=== PATIENT | male | born 1975 | race Hispanic/Latino ===

== ENCOUNTER 2017-05-23 16:14 | Emergency (ER) | payer MEDICARE ==
[2017-05-23] MEDS ORDERED: TYLENOL PO ONE (16:36)
[2017-05-23] MEDS ORDERED: TYLENOL ONE (16:37)
[2017-05-23 16:50] LABS: Basophils % (Auto) 0.8 % (0.0-1.8); Eosinophils % (Auto) 3.6 % (0.0-4.3); Hemoglobin 11.7 gm/dl (11.8-15.2); Mean Corpuscular HGB Conc 36 % (32-34); Mean Corpuscular Hemoglobin 33 pg (28-32); Mean Corpuscular Volume 93 fl (84-94); Platelet Count 379 K/mm3 (140-440); Red Blood Count 3.53 M/mm3 (3.65-5.03); Red Cell Distribution Width 12.1 % (13.2-15.2); White Blood Count 12.7 K/mm3 (4.5-11.0)
[2017-05-23 17:00] LABS: INR 0.96 (0.87-1.13)
[2017-05-23 17:03] LABS: Alanine Aminotransferase 21 units/L (7-56); Albumin/Globulin Ratio 1.3 %; Alkaline Phosphatase 92 units/L (35-129); Anion Gap 14 mmol/L; BUN/Creatinine Ratio 14; Bilirubin,Total < 0.20 mg/dL (0.1-1.2); Blood Urea Nitrogen 18 mg/dL (9-20); Calcium 10.4 mg/dL (8.4-10.2); Carbon Dioxide 37 mmol/L (22-30); Glucose 145 mg/dL (75-100); Sodium 139 mmol/L (137-145); Total Protein 7.1 g/dL (6.3-8.2)
[2017-05-23] MEDS ORDERED: DILAUDID IV ONE ×2 (17:19→19:56)
[2017-05-23] MEDS ORDERED: NACL 0.9% 1000 ML 1,000 ML IV ONE (17:19)
[2017-05-23] MEDS ORDERED: VANCOMYCIN/NS 1 GM/250 ML 1 GM/250 ML BAG IV ONE (17:19)
[2017-05-23] MEDS ORDERED: ZOFRAN IV ONE (17:19)
[2017-05-23 17:22] LABS: Potassium 2.8 mmol/L (3.6-5.0)
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
[2017-05-23] MEDS ORDERED: NACL ONE (17:35)
[2017-05-23] MEDS ORDERED: KCL 10MEQ/100ML 10 MEQ/100 ML BAG IV SCH (18:00)
--- NOTE | 2017-05-23 18:09 | XRay Report ---
FINAL REPORT EXAM: XR CHEST 1V AP HISTORY: possible Sepsis TECHNIQUE: upright single view chest PRIORS: None. FINDINGS: Cardiac and mediastinal contours are unremarkable. No focal pulmonary infiltrate is identified. No pleural fluid collection seen. Pulmonary vasculature is unremarkable. IMPRESSION: Negative single-view chest
[2017-05-23] MEDS ORDERED: SUBLIMAZE IV ONE ×2 (18:13→22:17)
[2017-05-23] MEDS ORDERED: SUBLIMAZE ONE ×2 (18:16→22:10)
[2017-05-23] MEDS ORDERED: VANCOMYCIN 1,250 MG in NACL 0.9% 250ML 250 ML IV SCH (18:30)
[2017-05-23] MEDS ORDERED: KCL 20 MEQ in NACL 0.9% 250ML 250 ML IV SCH (18:45)
[2017-05-23 19:12] LABS: Bilirubin,Urine NEG (Negative); Blood,Urine NEG (Negative); Ketones,Urine NEG (Negative); Leukocyte Esterase,Urine NEG (Negative); Mucus,Urine FEW /HPF; Nitrite,Urine NEG (Negative); Urobilinogen,Urine < 2.0 mg/dL (<2.0)
--- NOTE | 2017-05-23 19:41 | Cat Scan Report ---
FINAL REPORT EXAM: CT UPPER EXTREM RT W CON HISTORY: RT SHOULDER WOUND, DISCHARGE, S/P SURGERY TECHNIQUE: CT of the right upper extremity with intravenous contrast PRIORS: None. FINDINGS: Evidence prior surgery with surgical screws within the glenoid. No evidence for effusion within the shoulder joint. No acute bony changes are otherwise identified The anterior soft tissues of the right shoulder there is a small soft tissue defect. There is a low-density focus within the subcutaneous soft tissues measuring approximately 1.4 x 1.1 centimeters likely reflecting subcutaneous abscess there is some adjacent strandy increased density in the subcutaneous fatty tissues. No evidence for axillary adenopathy. IMPRESSION: Soft tissue defect subcutaneous anterior soft tissues of the right shoulder with small subcutaneous abscess collection
[2017-05-23] MEDS ORDERED: NACL 0.9% 500 ML 500 ML ONE (20:10)
[2017-05-23 21:34] VITALS: BP 144/83
== END 2017-05-23 22:39 | disposition other institution (70) ==
LOC: ED 16:14
DX: L02.413 Cutaneous abscess of right upper limb (principal); E87.6 Hypokalemia; F32.9 Major depressive disorder, single episode, unspecified; F41.9 Anxiety disorder, unspecified; F17.200 Nicotine dependence, unspecified, uncomplicated; R56.9 Unspecified convulsions; Z88.8 Allergy status to other drugs, medicaments and biological substances
CPT/HCPCS: 36415; 71010; 73201; 80053; 81001; 82140; 82805; 85025; 85610; 87040; 87086; 93005; 93010; 96361; 96365; 96375; 96376; 99285; J1170; J2405; J3010; J3370; J3480; J7030; J7040; J7050; Q9967

== ENCOUNTER 2018-09-15 12:37 | Emergency (ER) | payer MEDICARE ==
[2018-09-15] MEDS ORDERED: ZOFRAN ORAL LIQ PO ONE (13:13)
--- NOTE | 2018-09-15 13:13 | Emergency Department Report ---
Chief Complaint: Medical Clearance Stated Complaint: SUBOXONE SYNDRONE/PAIN Time Seen by Provider: 09/15/18 13:10 - HPI History of Present Illness: withdraw from suboxone has not taken in 1 week, takes TID N/V not tolerating PO intake having generalized muscle spams, tremors of the hands patient states psychiatrist was placed in group home has an appointment to see a new person on October 25 hx of chronic pain VSS MSE screening note: Focused history and physical exam performed. ED Disposition for MSE Condition: Stable
[2018-09-15] MEDS ORDERED: NACL 0.9% 1000 ML 1,000 ML ONE (13:53)
[2018-09-15] MEDS ORDERED: ZOFRAN ONE (13:53)
[2018-09-15] MEDS ORDERED: ZOFRAN IV ONE (13:55)
[2018-09-15] MEDS ORDERED: NACL 0.9% 1000 ML 1,000 ML IV ONE (13:56)
[2018-09-15 14:46] LABS: Basophils # (Auto) 0.2 K/mm3 (0.0-0.1); Eosinophils % (Auto) 0.2 % (0.0-4.3); Hematocrit 43.9 % (35.5-45.6); Hemoglobin 14.8 gm/dl (11.8-15.2); Lymphocytes # (Auto) 2.9 K/mm3 (1.2-5.4); Lymphocytes % (Auto) 17.7 % (13.4-35.0); Mean Corpuscular HGB Conc 34 % (32-34); Mean Corpuscular Volume 94 fl (84-94); Monocytes # (Auto) 1.6 K/mm3 (0.0-0.8); Monocytes % (Auto) 10.1 % (0.0-7.3); Platelet Count 318 K/mm3 (140-440); Red Blood Count 4.66 M/mm3 (3.65-5.03); Red Cell Distribution Width 13.2 % (13.2-15.2)
[2018-09-15 15:08] LABS: Alanine Aminotransferase 34 units/L (7-56); Albumin 4.9 g/dL (3.9-5); BUN/Creatinine Ratio 19; Blood Urea Nitrogen 21 mg/dL (9-20); Calcium 10.5 mg/dL (8.4-10.2); Hemolysis Index 16
[2018-09-15] MEDS ORDERED: NACL 0.9% 250ML 250 ML ONE (15:48)
[2018-09-15] MEDS ORDERED: NACL 0.9% 250ML 250 ML IV ONE (15:50)
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
[2018-09-15] MEDS ORDERED: PERCOCET 5/325 PO ONE (16:52)
--- NOTE | 2018-09-15 18:40 | Cat Scan Report ---
PROCEDURE: CT ABDOMEN PELVIS W CON TECHNIQUE: Following administration of IV contrast axial helical imaging was performed through the a bdomen and pelvis with sagittal and coronal reformatted images obtained. Delayed axial helical imagin g was also performed through the abdomen and pelvis. HISTORY: elevated WBC COMPARISONS: None FINDINGS: The lung bases are without infiltrate, pneumothorax or pleural fluid collection. There is evidence of fatty infiltration/steatosis of the liver. The gallbladder is absent with surgical clips in the gallbladder fossa. The spleen, pancreas, kidneys and adrenal glands are unremarkable. The bowel is normal caliber. The colon is largely air and fluid-filled with air-fluid levels. There is no evidence of bowel wall t hickening or pericolic inflammatory change. This may represent changes of enteritis. The appendix is normal caliber. There is no evidence of pneumoperitoneum or free fluid. The abdominal aorta is normal caliber. There is no evidence of intra-abdominal adenopathy. The urinary bladder is mildly distended and unremarkable. The prostate gland and seminal vesicles are unremarkable. The bony structures are unremarkable. IMPRESSION: 1. Findings suggestive of enteritis. 2. Fatty infiltration/steatosis of the liver. 3. Status post cholecystectomy. This document is electronically signed by Destini Hurtado MD., September 15 2018 06:37:50 PM ET
[2018-09-15 19:21] LABS: Amphetamine Screen,Urine PRESUMPTIVE NEGATIVE; Benzodiazepines Screen,Urine PRESUMPTIVE NEGATIVE; Cannabinoid Screen,Urine PRESUMPTIVE NEGATIVE; Cocaine Screen,Urine PRESUMPTIVE NEGATIVE; Methadone Screen,Urine PRESUMPTIVE NEGATIVE; Opiate Screen,Urine PRESUMPTIVE NEGATIVE
[2018-09-15 20:27] VITALS: BP 178/97
== END 2018-09-15 20:26 | disposition home or self-care (01) ==
LOC: ED 12:37
DX: F11.23 Opioid dependence with withdrawal (principal); E87.6 Hypokalemia; G89.29 Other chronic pain; R10.9 Unspecified abdominal pain; F32.9 Major depressive disorder, single episode, unspecified; F41.9 Anxiety disorder, unspecified; F17.200 Nicotine dependence, unspecified, uncomplicated; Z88.8 Allergy status to other drugs, medicaments and biological substances
CPT/HCPCS: 36415; 74177; 80053; 80307; 83735; 85025; 93005; 93010; 99284; G0480; J2405; J7030; J7050; Q9967; 80320